=== PATIENT | male | born 1970 | race African-American/Black ===

== ENCOUNTER 2022-05-31 19:18 | Emergency (ER) | payer MEDICAID ==
[~2022-05-31] VITALS: Ht 193 cm; Wt 93.2 kg
[2022-05-31 19:32] VITALS: BP 125/66
== END 2022-05-31 21:07 | disposition left against medical advice (07) ==
LOC: EMS 19:20
DX: Z53.21 Procedure and treatment not carried out due to patient leaving prior to being seen by health care provider (principal)
CPT/HCPCS: 99281; Z7502